=== PATIENT | female | born 1930 | race Caucasian/White ===

== ENCOUNTER → 2016-11-19 | Outpatient (CLI) | payer MEDICARE ==
[~2016-11-19] MED LIST: ACET50TA PO; CALC1CAP31 PO; CINA30TA PO; FISH1CAP14 PO; GLIP-163 PO; HYDR25T PO; LASI20TA PO; LOSA100T36 PO; MAGN400C2 PO; MULTCAP11 PO; NYST10CR EXT; SIMV20TA2 PO; VITA100037 PO; VITA200016 PO
[2016-11-19 13:51] LABS: CALCIUM LEVEL 9.9 MG/DL (8.8-10.2); CREATININE FOR GFR 1.93 MG/DL (0.55-1.02); GLOMERULAR FILTRATION RATE 26.1 (>32); POTASSIUM SERUM 4.1 MEQ/L (3.5-5.1)
--- NOTE | 2016-11-19 17:22 | REP ---
CHEST, TWO VIEWS: REASON: Preop testing. COMPARISON: Multiple, latest 09/19/2011. Note is again made of previous median sternotomy. The cardiomediastinal silhouette is unchanged. The heart is not enlarged. In the right lung lower lobe there is a new 5 mm sized nodule. No acute patch parenchymal opacities or pleural effusions have developed. The pleural angles are sharp. There are chronic changes seen involving the spine status quo. IMPRESSION:1. New right lower lobe nodule as described above for which contrast enhanced CT examination of the chest is recommended. 2. Other chronic changes as described above. Signed by Forrest Ireland DO 11/20/2016 10:20 A
--- NOTE | 2016-11-19 19:08 | ECGEPIP ---
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
== END ==
LOC: M LAB 11:59
PROVIDERS: ATTEND Ophthalmology
DX: Z01.818 Encounter for other preprocedural examination (principal); R91.1 Solitary pulmonary nodule; E11.9 Type 2 diabetes mellitus without complications; I50.9 Heart failure, unspecified

== ENCOUNTER → 2016-11-19 | Outpatient (REF) | payer MEDICARE ==
[2016-11-19 16:23] LABS: ALBUMIN 3.7 GM/DL (3.2-5.2); ALBUMIN/GLOBULIN RATIO 1.03 (1.00-1.93); BILIRUBIN,TOTAL 0.4 MG/DL (0.2-1.0); CALCIUM LEVEL 9.6 MG/DL (8.8-10.2); CREATININE FOR GFR 1.78 MG/DL (0.55-1.02); GLOMERULAR FILTRATION RATE 28.7 (>32); MAGNESIUM LEVEL 1.9 MG/DL (1.8-2.4); POTASSIUM SERUM 4.2 MEQ/L (3.5-5.1); TOTAL PROTEIN 7.3 GM/DL (6.4-8.2)
== END ==
LOC: M SFHCLACO 09:46
PROVIDERS: ATTEND Physician Assistant
DX: E78.2 Mixed hyperlipidemia (principal); E11.9 Type 2 diabetes mellitus without complications; I10 Essential (primary) hypertension; E61.2 Magnesium deficiency

== ENCOUNTER → 2016-12-05 | Day surgery (SDC) | payer MEDICARE ==
[~2016-12-05] VITALS: Ht 144.8 cm; Wt 66.7 kg
[~2016-12-05] MED LIST changes: +ACETYLCHOLINE OPHTH SOLN 1% 2ML (MIOCHOL-E) As Ordered ONE; +BALANCED SALT IRRIGATION SOLUTION 500ML BAG (FOR OR EYE MACHINE) As Ordered ONE; +CEFUROXIME 1MG/0.1ML INTRACAMERAL INJ As Ordered ONE; +D5W/0.2% SODIUM CHLORIDE 250 ML IV ONE; +HEALON DUET (HEALON 10MG/ML 0.55ML & HEALON ENDOCOAT 30MG/ML 0.85ML) As Ordered ONE; +LIDOCAINE 0.75%/EPINEPHRINE 0.025% IN BSS 1ML SYR INTRACAMERAL (OR ONLY) As Ordered ONE; +LIDOCAINE 4% INJ 5 ML AMP As Ordered ONE; +MIDAZOLAM INJ 2 MG/2 ML VIAL (J2250) As Ordered ONE; +OFLOXACIN 0.3 % (OCUFLOX) OPTH SOL 5ML OS ONE; +PHENYLEPHRINE 2.5% OPHTH SOL 2ML OS ONE; +POVIDONE-IODINE 5% OPHTH PREP SOL 30ML As Ordered ONE; +PROPARACAINE 0.5% OPHTH SOL 15ML OS ONE; +TOBRADEX OPHTH OINT 3.5 GM As Ordered ONE; +TROPICAMIDE 1% OPHTH SOLN 2ML OS ONE; +fentaNYL 100 MCG/2 ML INJECTION (J3010) As Ordered ONE
[2016-12-05 13:16] VITALS: BP 195/86
--- NOTE | 2016-12-06 10:48 | RO ---
DATE OF PROCEDURE: 12/05/2016 PREOPERATIVE DIAGNOSIS: Visually significant nuclear sclerotic cataract left eye. POSTOPERATIVE DIAGNOSIS: Visually significant nuclear sclerotic cataract left eye. PROCEDURE: Cataract extraction with use of phacoemulsification and placement of intraocular lens AU00T0 22.0 diopter, left eye. SURGEON: Syd Lynn DO CLINICAL RESEARCH MANAGER: ANESTHESIA: Local with monitored anesthesia care (MAC). COMPLICATIONS: None. POSTOPERATIVE CONDITION: Stable. INDICATION FOR SURGERY: Blurred vision left eye affecting patient's activities of daily living. DESCRIPTION OF PROCEDURE: The patient was seen in the preoperative area and properly identified. The correct operative eye was identified and marked. Attention was turned to that eye. The patient received topical antibiotics in the preoperative area. The patient then received topical dilating drops consisting of tropicamide and phenylephrine. The patient was then transferred to the operating room. The correct side was reidentified. The patient received topical anesthetics and antibiotics on the surface of the eye. The eye was prepped and draped in a sterile fashion. The upper and lower eyelids were isolated with Tegaderm tape, and the lids were held open with an adjustable speculum. Using a sideport blade, a paracentesis incision was made. Intraocular preservative-free lidocaine was then injected into the anterior chamber. Viscoelastic was then injected into the anterior chamber through the paracentesis. Using a 2.65 mm sharp-tipped keratome, the anterior chamber was entered via a temporal clear corneal incision. A continuous curvilinear capsulorrhexis was created with the aid of a 26-gauge cystotome and Utrata forceps. Hydrodissection was performed with balanced salt solution (BSS) on a blunt cannula until the nucleus was freely mobile. The crystalline lens was phacoemulsified and aspirated. Additional cohesive viscoelastic was placed into the capsular bag to deepen it. AU00T0 22.0 lens was placed into the capsular bag and confirmed by visualizing the continuous curvilinear capsulorrhexis. Additional irrigation and aspiration was used to remove cortical material and remaining viscoelastic. The clear corneal incision was hydrated with BSS on a blunt cannula. The lens was well positioned. The incisions were then tested for leaks and found to be negative. The eye was then palpated for appropriate pressure and adjusted accordingly with BSS. The eyelid speculum was then carefully removed. Tobradex ointment was placed in the eye. An eye patch and shield were then secured over the eye. The patient tolerated the procedure well and was discharged to the recovery unit in a stable condition. REED
== END | disposition home or self-care (01) ==
LOC: M SDC 09:46
PROVIDERS: ATTEND Ophthalmology
DX: H25.12 Age-related nuclear cataract, left eye (principal); I11.0 Hypertensive heart disease with heart failure; E78.00 Pure hypercholesterolemia, unspecified; I25.10 Atherosclerotic heart disease of native coronary artery without angina pectoris; I25.2 Old myocardial infarction; E11.9 Type 2 diabetes mellitus without complications; R29.898 Other symptoms and signs involving the musculoskeletal system; M17.0 Bilateral primary osteoarthritis of knee; M19.019 Primary osteoarthritis, unspecified shoulder; N28.9 Disorder of kidney and ureter, unspecified; Z78.0 Asymptomatic menopausal state; Z88.5 Allergy status to narcotic agent; Z79.899 Other long term (current) drug therapy
CPT/HCPCS: 66984; J2250; J3010; V2632

== ENCOUNTER → 2017-03-07 | Outpatient (REF) | payer MEDICARE ==
[~2017-03-07] MED LIST changes: +ACET650T3 PO; -ACETYLCHOLINE OPHTH SOLN 1% 2ML (MIOCHOL-E) As Ordered ONE; +AMLO5TAB2 PO; +ASPI81TA21 PO; -BALANCED SALT IRRIGATION SOLUTION 500ML BAG (FOR OR EYE MACHINE) As Ordered ONE; -CEFUROXIME 1MG/0.1ML INTRACAMERAL INJ As Ordered ONE; -D5W/0.2% SODIUM CHLORIDE 250 ML IV ONE; -HEALON DUET (HEALON 10MG/ML 0.55ML & HEALON ENDOCOAT 30MG/ML 0.85ML) As Ordered ONE; +HYDR-3363 PO; -HYDR25T PO; +HYDR25TA PO; -LIDOCAINE 0.75%/EPINEPHRINE 0.025% IN BSS 1ML SYR INTRACAMERAL (OR ONLY) As Ordered ONE; -LIDOCAINE 4% INJ 5 ML AMP As Ordered ONE; -MIDAZOLAM INJ 2 MG/2 ML VIAL (J2250) As Ordered ONE; -OFLOXACIN 0.3 % (OCUFLOX) OPTH SOL 5ML OS ONE; -PHENYLEPHRINE 2.5% OPHTH SOL 2ML OS ONE; -POVIDONE-IODINE 5% OPHTH PREP SOL 30ML As Ordered ONE; -PROPARACAINE 0.5% OPHTH SOL 15ML OS ONE; -TOBRADEX OPHTH OINT 3.5 GM As Ordered ONE; +TORS10TA3 PO; +TORS20TA2 PO; -TROPICAMIDE 1% OPHTH SOLN 2ML OS ONE; -VITA100037 PO; +VITA100067 PO; -fentaNYL 100 MCG/2 ML INJECTION (J3010) As Ordered ONE
[2017-03-13 14:15] LABS: RENIN LEVEL 1.512 ng/mL/hr (0.167-5.380)
== END ==
LOC: M LAB REF 17:45
PROVIDERS: ATTEND Internal Medicine Nephrology
DX: I15.0 Renovascular hypertension (principal)

== ENCOUNTER → 2017-03-18 | Outpatient (CLI) | payer MEDICARE ==
--- NOTE | 2017-03-18 16:32 | REP ---
RENAL ULTRASOUND WITH RENAL ARTERY DOPPLER ULTRASOUND: 03/18/2017: Clinical history: Renovascular hypertension. Comparison: 11/15/2014. Renal ultrasound: The right kidney is 10.8 x 4.8 x 5.5 cm, the left is 11.6 x 6.0 x 6.9 cm. Bilateral cortical thickness is slightly thinned. There are calcified vessels at the hilum bilaterally. The two largest cysts are in the lower pole on the right 2.4 x 2.1 cm and 1.8 x 1.8 cm lateral and medial on that lower pole left kidney also shows multiple cysts with a septated gross pelvic cyst 4.4 x 4.2 x 4 cm and medially at the interpolar region 2.5 x 1.9 cm. No perinephric fluid or solid mass in either side. The bladder is grossly unremarkable although not well filled and without bladder wall mass or thickening. Impression: 1. Cortical thinning representing some mild cortical atrophy with some calcified vessels in the hilar regions bilaterally. 2. Septated cyst, parapelvic region interpolar 4.4 x 4.2 cm with a medial simple cyst 2.5 x 1.9 cm at the interpolar region on the left and two lower pole cyst on the right 2.4 and 1.8 cm largest. No hydronephrosis, stone or solid mass. RENAL ARTERY DOPPLER ULTRASOUND: The right kidney has a length of 10.8 cm.Peak renal artery velocity 61.5 cm/SPeak aortic velocity at the renal artery level 81.7 cm/SRenal aortic ratio 0.8Resistive index upper 0.75, mid 0.71, lower 0.75Acceleration time upper 0.048, mid 0.060, lower 0.052 Sec. The left kidney is 11.6 cm in length.Peak renal artery velocity 105 cm/SPeak aortic velocity at the renal artery level 81.7 cm/SRenal aortic ratio 1.3Resistive index of upper 0.67, mid 0.70, lower 0.75Acceleration time upper 0.052, mid 0.052, lower pole 0.068. The Doppler wave forms do show slight rounding of the aortic peaks. There are normal renal aortic ratios. Peak velocities are all in the normal range. Impression:1. There is no compelling primary or secondary evidence of renal artery stenosis by Doppler and artery tracings in the kidneys. Signed by Breezy Goodson MD 03/21/2017 05:15 P
== END ==
LOC: M RAD 08:41
PROVIDERS: ATTEND Internal Medicine Nephrology
DX: I15.0 Renovascular hypertension (principal)

== ENCOUNTER 2017-03-28 15:36 | Inpatient (IN) | payer MEDICARE ==
[~2017-03-28] VITALS: Ht 147.3 cm; Wt 64.4 kg
[~2017-03-28 15:36] MED LIST changes: -ACET650T3 PO; -AMLO5TAB2 PO; -ASPI81TA21 PO; -HYDR25TA PO; -TORS10TA3 PO; -TORS20TA2 PO
[2017-03-28] MEDS ORDERED: ACET650T3 PO (15:52)
[2017-03-28] MEDS ORDERED: TORS10TA3 PO (15:52)
[2017-03-28] MEDS ORDERED: LABETALOL HCL 100 MG/20 ML VIAL IV STA (18:00)
[2017-03-28] MEDS ORDERED: DEXTROSE 50% 50 ML SYRINGE IV PRN (18:30)
[2017-03-28] MEDS ORDERED: GLUCAGON FOR INJ 1 MG VIAL (J1610) SC PRN (18:30)
[2017-03-28] MEDS ORDERED: GLUCOSE 4 GM CHEW TABLET PO PRN (18:30)
[2017-03-28 19:20] LABS: BASO # 0.1 K/mm3 (0.0-0.2); EOS # 0.5 K/mm3 (0.0-0.50); EOS % 6.1 % (0.0-3.0); LARGE UNSTAINED CELL # 0.2 K/mm3 (0.0-0.4); LARGE UNSTAINED CELL % 1.9 % (0.0-4.0); LYMPH # 2.7 K/mm3 (1.5-4.5); LYMPH % 32.6 % (24.0-44.0); MEAN CORPUSCULAR HEMOGLOBIN 30.1 pg (27.0-33.0); MEAN CORPUSCULAR HGB CONC 32.6 g/dl (32.0-36.5); MEAN CORPUSCULAR VOLUME 92.4 fl (80.0-96.0); MONO # 0.4 K/mm3 (0.0-0.8); MONO % 5.3 % (0.0-5.0); NEUTROPHILS # 4.1 K/mm3 (1.8-7.7); PLATELET COUNT, AUTOMATED 203 k/mm3 (150-450); RED CELL DISTRIBUTION WIDTH 13.1 % (11.5-14.5); WHITE BLOOD COUNT 7.8 K/mm3 (4.0-10.0)
[2017-03-28] MEDS ORDERED: BISOPROLOL FUMARATE 5 MG TAB PO SCH (19:30)
[2017-03-28] MEDS ORDERED: TORS20TA2 PO (19:31)
[2017-03-28] MEDS ORDERED: ASPI81TA21 PO (19:33)
[2017-03-28] MEDS ORDERED: HYDR25TA PO (19:33)
[2017-03-28] MEDS: SIMVASTATIN 20 MG TAB PO SCH (19:43)
[2017-03-28 19:47] LABS: CREATININE FOR GFR 1.98 MG/DL (0.55-1.02); GLOMERULAR FILTRATION RATE 25.4 (>32); PHOSPHORUS LEVEL 4.4 MG/DL (2.5-4.9); POTASSIUM SERUM 3.7 MEQ/L (3.5-5.1)
[2017-03-28] MEDS ORDERED: amLODIPine 5 MG TAB PO ONE (20:00)
[2017-03-28] MEDS: HumaLOG INSULIN (NovoLOG) PER UNIT SC SCH (20:20)
--- NOTE | 2017-03-28 21:51 | CR ---
DATE OF CONSULTATION: REQUESTING PHYSICIAN: Dr. Jayant Michelle. REASON FOR CONSULTATION: Management of accelerated hypertension in this patient with history of chronic kidney disease stage IV. CHIEF COMPLAINT: The patient was sent from nephrology clinic today because she called the nephrology clinic today morning stating that her blood pressure on the home machine was running in the 200s. HISTORY OF PRESENT ILLNESS: Andrea Holden is an 86-year-old female with past medical history of chronic kidney disease stage III to early stage IV with baseline creatinine of around 1.8. She has a history of hypertension, congestive heart failure, coronary artery disease status post coronary artery bypass graft (CABG). She was seen in the nephrology clinic about three weeks ago, and at that time, she was also complaining of high blood pressures at home. However, when she was seen in the clinic, her blood pressure was 148 systolic, so no change in the medication was done except that she was restarted on hydralazine 25 mg by mouth twice a day. She was already on losartan 100 mg by mouth daily. Further workup including a renal ultrasound and Doppler of the renal arteries was negative. Large aldosterone concentration and plasmin inactivity was also found to be normal. However, after visiting the clinic, patient kept on taking her blood pressure and her home machine was telling that it was running in 200s. The patient denies any headache , blurry vision, dizziness, lightheadedness, chest pain, shortness of breath, any nausea, vomiting or any symptoms of high blood pressure. When patient was examined in the emergency room, initially the manual blood pressure was low; however, on the automatic blood pressure machine, her blood pressure was found to be 200 systolic, so patient was admitted to the hospital for further management of hypertensive urgency and nephrology service was called for further management of hypertension in this patient with a history of chronic kidney disease. When I saw the patient, she was totally asymptomatic in the emergency room today. PAST MEDICAL HISTORY: 1. The patient has a past medical history of chronic kidney disease stage III to early stage IV, last baseline creatinine of around 1.4 three weeks ago; otherwise, her baseline runs around 1.8. 2. Hypertension. 3. Congestive heart failure. 4. Diabetes mellitus type 2. 5. Hyperlipidemia. PAST SURGICAL HISTORY: The patient has a past surgical history of coronary artery bypass grafting, history of hysterectomy, history of carpal tunnel surgery, history of cataract surgery. ALLERGIES: The patient is allergic to: 1. CODEINE. 2. HYDROCODONE. 3. OXYCODONE. FAMILY HISTORY: No significant family history of end-stage renal disease requiring hemodialysis. SOCIAL HISTORY: The patient lives alone. She is . She denies any illicit drug abuse, alcohol abuse, or smoking. REVIEW OF SYSTEMS: CONSTITUTIONAL: The patient denies any fever, chills, rigors or weakness. EYES: She denies any blurry vision or double vision. EARS, NOSE, THROAT (ENT): She denies any dysphagia, odynophagia or ear discharge. CARDIOVASCULAR: She denies any chest pain, palpitations or edema. RESPIRATORY: She denies any cough, wheezing, or shortness of breath. GASTROINTESTINAL (GI): She denies any nausea, vomiting, diarrhea. GENITOURINARY (): She denies any dysuria or hematuria. MUSCULOSKELETAL: She denies any muscle aches and pains. CENTRAL NERVOUS SYSTEM (TEAM LEAD): She denies any stroke, seizures or weakness. SKIN: She denies any rashes or ulcers. ENDOCRINE: She reports history of diabetes. There is no history of thyroid disorder. HEMATOLOGIC/ONCOLOGIC: She denies any easy bruising or bleeding tendency. All other review of systems is negative. PHYSICAL EXAMINATION: GENERAL: The patient is awake, alert, and oriented times three, sitting in the bed in no apparent distress. HEAD/NECK: Extraocular muscles. Pupils equal, round, and reactive to light. Mucous membranes are moist. Neck is supple. There is no jugular venous distention (JVD). VITAL SIGNS: When I saw the patient in the emergency room, her temperature was 97.9 degrees Fahrenheit, blood pressure was 217/105, pulse 63, respiratory rate of 18, saturating 97% on room air. CARDIOVASCULAR: S1, S2, regular rate. No murmur, rub, or gallop. RESPIRATORY: Chest is clear to auscultation bilaterally. Bilateral equal air entry. No rales or rhonchi. ABDOMEN: Soft. Positive bowel sounds. Nontender. No ascites. No organomegaly. MUSCULOSKELETAL: No clubbing or cyanosis. Pulses are 2+. Normal range of movement. TEAM LEAD: No focal neurological deficit. Power is 5/5 in all extremities. PSYCHIATRIC: Normal mood and affect. SKIN: No rashes or ulcers. LYMPHATIC: No significant cervical, axillary or unguinal lymphadenopathy. LABORATORY DATA: CBC showed a WBC 7.8, hemoglobin 13.8, platelets of 203. Urinalysis showed 1+ protein, negative leukocyte esterase, negative blood. BMP shows sodium 144, potassium 3.7, chloride 105, bicarbonate 28, BUN 43, creatinine 1.8, GFR 25.4, phosphorus 4.4. MICROBIOLOGY: No cultures are available. IMAGING: A renal ultrasound done on 03/18/2017, as an outpatient showed cortical thinning with some mild cortical atrophy bilaterally, and there were cysts on both sides of the kidney and there was no evidence of renal artery stenosis on the Dopplers bilaterally. CURRENT INPATIENT MEDICATIONS: The patient's inpatient medications include amlodipine 5 mg by mouth times one dose, bisoprolol 5 mg by mouth daily that was started today. She was started on insulin sliding scale. She was given labetalol 10 mg intravenous (IV) times one dose. She has been started on losartan 100 mg daily, simvastatin 20 mg at bedtime, torsemide 20 mg in the morning The patient's home medications include: - hydralazine 25 mg one tablet by mouth twice a day - Sensipar 30 mg by mouth three times a week - vitamin D 2000 units every other day - torsemide 20 mg daily - glipizide XL 2.5 mg in the morning - magnesium oxide 400 mg daily - calcitriol 0.25 mcg five days a week - hydroxyzine as needed - losartan 100 mg by mouth daily - simvastatin 20 mg by mouth daily - aspirin 81 mg daily - multivitamin daily - Tylenol 650 mg as needed - fish oil 1 gram by mouth daily ASSESSMENT: An 86-year-old female with past medical history of diabetes mellitus type 2, hypertension, congestive heart failure, hyperlipidemia, admitted this time because of hypertensive urgency, and she has a history of chronic kidney disease stage IV. PLAN: 1. Hypertensive urgency: The patient only takes losartan 100 mg by mouth daily and hydralazine 25 mg by mouth twice a day. Her blood pressure on admission was more than 200 systolic; however, after administration of amlodipine 5 mg and labetalol 10 mg IV, her repeat blood pressure is 177/74, for 25% reduction of blood pressure today. Okay to continue bisoprolol 5 mg daily, amlodipine 5 mg daily, and losartan 100 mg by mouth daily. Continue labetalol 10 mg IV as needed for systolic blood pressure more than 170. 2. Chronic kidney disease stage IV: The patient's baseline creatinine is around 1.8. Her creatinine on admission is 1.9 which is close to her baseline. There is no metabolic or electrolyte abnormality at this time. Okay to continue losartan for now; however, if I see any worsening of the renal function, her losartan will be stopped. She has been on losartan for many years and her glomerular filtration rate (GFR) has been stable in high 20s for the last 2-3 years as I can see the labs. 3. History of coronary artery disease, status post coronary artery bypass graft (CABG): Continue current dose of aspirin 81 mg by mouth daily, and continue simvastatin 20 mg by mouth daily. 4. Secondary hyperparathyroidism: The patient was on Sensipar and calcitriol both at home. I am going to check the parathyroid hormone (PTH) level and depending upon the PTH, her calcitriol or Sensipar will be restarted. 5. Diabetes mellitus type 2: The patient's blood glucose on admission was 87. Her diabetes is very well controlled with glipizide 2.5 mg by mouth daily. Check A1c level and continue home dose of glipizide 2.5 mg daily. 6. History of congestive heart failure: The patient is currently on torsemide 20 mg by mouth daily. Volume status is well optimized. Continue current dose of torsemide. The patient has been started on Bystolic 5 mg by mouth daily. Okay to continue cardioselective beta blockers at this time. Thank you for involving us in the care of this patient. We shall be happy to follow the patient along with you tomorrow morning. Plan of care was discussed with the emergency room (ER) physician today in the evening. REED
--- NOTE | 2017-03-28 21:54 | HPE ---
DATE OF ADMISSION: 03/28/2017 PRIMARY CARE PROVIDER: JOCELYNE Canada, [facility].. TIP STITCHER: Dr. Hannon CHIEF COMPLAINT: Accelerated hypertension. HISTORY: Andrea Maza is an 86-year-old with stage IV chronic kidney disease. Her blood pressure has been elevated, over 200-210 systolic at home. Today she called Dr. Hannon's office, who directed her to the emergency room. Blood pressure has been somewhat erratic here, as low as 122/70, as high as 217/105. She is being admitted for control of this. She has a history of stage IV chronic kidney disease. Is followed by Dr. Hannon's office. Has coronary artery disease, status post coronary artery bypass graft (CABG) times four. Nuclear stress test in 2013. It showed no reversibility, 82% ejection fraction. History of type 2 diabetes, hyperlipidemia, hypertension, renal cysts, and knee pain. SOCIAL HISTORY: Nonsmoker. Quit back when was in her 40s. SURGICAL HISTORY: 1. sections times four. 2. Coronary bypass 2010. FAMILY HISTORY: Father had emphysema. Mother had congestive heart failure (CHF). MEDICATIONS: - losartan 100 mg daily - torsemide 10 mg twice a day - aspirin 81 mg daily - magnesium oxide 400 mg daily - simvastatin 20 mg at bedtime - fish oil - glipizide 2.5 mg daily - calcitriol 0.25 mcg daily - Sensipar 30 mg twice weekly - vitamin D 2000 units daily - nystatin cream as needed - Tylenol as needed - multivitamin ALLERGIES: CODEINE caused hallucinations. IMMUNIZATIONS: She received her Prevnar April 2016. I am not sure if she has gotten her Pneumo 23. She gets yearly flu shots. REVIEW OF SYSTEMS: No orthopnea, paroxysmal nocturnal dyspnea (PND), chest pain. No increased salt intake. No syncope. PHYSICAL EXAMINATION: 217/105, pulse 96, respiratory rate 16, 95% oxygen saturation. GENERAL APPEARANCE: Alert, conversant. No distress. Pupils equal, reactive to light. Tympanic membranes and oropharynx benign. Fundi look unremarkable. No jugular venous distention (JVD). NECK: Supple. LUNGS: Clear. HEART: Regular rate and rhythm without murmur. ABDOMEN: Soft, nontender. No masses. EXTREMITIES: No clubbing, cyanosis, or edema. She has no clonus. NEUROLOGIC: Unremarkable. Normal strength, reflexes, and sensation. LABORATORY DATA: Apparently she did not have any labs drawn today. Review in [facility] showed she had a renal ultrasound done 03/21/2017. No renal artery stenosis was seen. Medical renal disease noted as well as some renal cysts. IMPRESSION: 1. Hypertensive urgency. She is neurology intact. No sign of any end-organ change, although there have been on labs drawn, so we are not sure what is going on with renal function. Lab work would be helpful in this patient. I think we can still proceed with admission based on her blood pressure. She will be admitted to a progressive care unit (PCU) bed. Continue her antihypertensives, losartan 100 mg daily, torsemide 10 mg daily. Add beta stu, bisoprolol 5 mg daily. Add amlodipine 5 mg daily. Consult nephrology. 2. Stage IV chronic kidney disease. Nephrology consulted. 3. Diabetes. Hold her glipizide. Blood sugars with sliding scale coverage until her oral intake is assured. 4. Hyperlipidemia. Continue simvastatin 20 mg daily.
[2017-03-29] VITALS (7 sets, daily range): BP systolic 113–158; BP diastolic 56–70; PULSE 58
[2017-03-29] MEDS: LABETALOL HCL 100 MG/20 ML VIAL IV SCH ×4 (05:24→17:54)
[2017-03-29 06:21] LABS: ANION GAP 13 MEQ/L (8-16); BLOOD UREA NITROGEN 42 MG/DL (7-18); CARBON DIOXIDE LEVEL 25 MEQ/L (21-32); CHLORIDE LEVEL 107 MEQ/L (98-107); CREATININE FOR GFR 1.89 MG/DL (0.55-1.02); GLOMERULAR FILTRATION RATE 26.8 (>32); GLUCOSE, FASTING 106 MG/DL (83-110); MAGNESIUM LEVEL 1.8 MG/DL (1.8-2.4); PHOSPHORUS LEVEL 4.8 MG/DL (2.5-4.9); SODIUM LEVEL 145 MEQ/L (136-145)
[2017-03-29 06:22] LABS: MEAN CORPUSCULAR HEMOGLOBIN 30.3 pg (27.0-33.0); MEAN CORPUSCULAR HGB CONC 32.8 g/dl (32.0-36.5); MEAN CORPUSCULAR VOLUME 92.6 fl (80.0-96.0); RED CELL DISTRIBUTION WIDTH 13.2 % (11.5-14.5); WHITE BLOOD COUNT 7.9 K/mm3 (4.0-10.0)
[2017-03-29] MEDS: TORSEMIDE 20 MG TAB PO SCH (08:47)
[2017-03-29] MEDS: HumaLOG INSULIN (NovoLOG) PER UNIT SC SCH ×5 (08:48→21:00)
[2017-03-29] MEDS: LOSARTAN 50 MG TAB PO SCH (08:48)
--- NOTE | 2017-03-29 12:10 | ECGEPIP ---
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
[2017-03-29] MEDS: ASPIRIN 81 MG ENTERIC TAB PO SCH (12:14)
--- NOTE | 2017-03-29 17:06 | IPN ---
DATE: 03/29/2017 SUBJECTIVE: Patient was seen and examined at the bedside today morning. Last 24-hour events were noted. Vital signs over the last 24 hours were noted. Patient's blood pressures are significantly better today. She denies any active complaints at this time. She is hemodynamically much more stable today as compared with yesterday. REVIEW OF SYSTEMS: Patient denies any fevers, chills, rigors, headache, nausea, vomiting, chest pain, shortness of breath, pain in abdomen, constipation, or diarrhea. Rest of review of systems is negative. OBJECTIVE: Vital signs: Temperature is 98.5 degrees Fahrenheit, blood pressure is 140/60, pulse is 48, respiratory rate of 18, saturating 96% on room air. Intake and output: Urine output recorded overnight is 800 mL. Weight in the bed scale is 65.3 kg. PHYSICAL EXAMINATION: GENERAL: Patient is awake, alert, oriented times three, lying in bed. No apparent distress. HEAD AND NECK: Extraocular muscles intact. Pupils equally round and reactive to light. Mucous membranes are moist. Neck is supple. There is no jugular venous distention (JVD). CARDIOVASCULAR: S1, S2, regular rate. No murmur, rub, or gallop. RESPIRATORY: Chest is clear to auscultation bilaterally. Bilateral equal air entry. No rales or rhonchi. ABDOMEN: Abdomen is soft. Positive bowel sounds. Nontender. No ascites. No organomegaly. MUSCULOSKELETAL: No clubbing or cyanosis. Pulses are 2+. Normal range of movement. CENTRAL NERVOUS SYSTEM: No focal neurological deficit. Power is 5/5 in all extremities. PSYCHIATRIC: Normal mood and affect. SKIN: No rashes or ulcers. LABORATORY REVIEW: CBC showed a WBC 7.9, hemoglobin is 12, platelets are 192. BMP showed sodium 145, potassium is 4, chloride 107, bicarbonate 25, BUN is 42, creatinine is 1.8, which is close to her baseline. Glucose was 126, A1c was 6 today morning. Ionized calcium is 5, phosphorus is 4.8. PTH level is still pending. CURRENT INPATIENT MEDICATIONS: Patient's medications were all reviewed by me. She has been started on amlodipine 5 mg daily. Bisoprolol dose was decreased to 2.5 mg by mouth daily because of bradycardia. She continues to be on losartan 100 mg by mouth daily and torsemide 20 mg by mouth every morning. Patient has not required any labetalol dose since last night. ASSESSMENT: An 86-year-old female with past medical history of diabetes mellitus, type 2, hypertension, congestive heart failure, hyperlipidemia, admitted at this time because of hypertensive urgency. PLAN: 1. Hypertensive urgency. Patient's blood pressure is significantly better. She was given a dose of amlodipine and intravenous (IV) hydralazine yesterday. Continue current dose of losartan 100 mg daily. Continue current dose of diuretic. Patient had bradycardia this morning. Her bisoprolol dose has been decreased to 2.5 mg daily. Continue amlodipine 5 mg daily, which was started yesterday. 2. Chronic kidney disease, stage IV. Patient's baseline creatinine is around 1.8, and her renal function is close to her baseline. It is okay to continue the angiotensin receptor blockers at this time. 3. History of coronary artery disease, status post coronary artery bypass graft (CABG). Blood pressure is better controlled today. I have restarted patient's home dose of aspirin 81 mg daily. Continue simvastatin 20 mg by mouth daily. 3. Secondary hyperparathyroidism. Patient was on calcitriol and Sensipar both as outpatient. Parathyroid hormone level is pending. Once the parathyroid hormone (PTH) level comes back, I will restart the patient on one of these medications. 4. Diabetes mellitus, type 2. Patient's A1c is 6, which is very tightly controlled for her age. She was on glipizide 2.5 mg daily. Glipizide is on hold. Blood glucose levels are within the optimal range. No need to restart the glipizide at this time. 5. History of congestive heart failure. Patient is currently on torsemide 20 mg by mouth daily. Continue current dose of torsemide. Volume status is well optimized. Patient has been started on Bystolic; however, because of bradycardia, dose has been decreased to 2.5 mg by mouth daily. 6. Workup for secondary hypertension. Patient already got the Doppler of the renal arteries done as outpatient, which was negative. Plasma and aldosterone concentration and plasma renin activity were within the normal range. I have ordered the metanephrines and vanillylmandelic acid (VMA) in the urine. The results are pending. DISCHARGE PLANNING: If patient's blood pressure remains stable by tomorrow morning, then she can be discharged on oral medications. Rest of the workup will be done as outpatient. Plan of care was discussed with the hospitalist, Dr. Jayant Michelle.
--- NOTE | 2017-03-29 17:23 | ECGEPIP ---
Stationary ECG Study 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
--- NOTE | 2017-03-29 18:57 | IPN ---
DATE: 03/29/2017 Ms. Maza is doing well today. She has no complaints of pain, no chest pain, is not short of breath, and has been checking her blood pressure at home frequently, and has said it has been elevated. Temperature 98.5, pulse 48, respiratory rate 18, blood pressure 140/60, 96% on room air. Telemetry has shown her to be in sinus bradycardia at times. She did get beta blockade last night. Intake and output notable for a negative fluid balance of -470, three bowel movements noted thus far today. She is awake, appropriately interactive, pleasantly conversant, in no acute distress. Breathing is symmetrical and rested, I:E ratio is 1:3, no accessory muscle use, speaking in complete sentences. Heart is in a regular rate and rhythm, although is bradycardic as previously mentioned. Radial pulses 2+. Capillary refill less than 2 seconds. Abdomen soft, doughy, nontender to deep palpation. No significant lower extremity edema. White cell count 7.9, hemoglobin 12, and platelets of 182. Sodium 145, potassium 4, chloride 107, carbon dioxide 25, BUN 42, creatinine 1.89. CK and troponins have been negative times three. My assessment is as follows: This is an 86-year-old female with hypertensive urgency. Plan is as follows: 1. Hypertension. The patient's blood pressure is better controlled. It is unclear whether or not her home device for measuring her blood pressure is entirely accurate, although it is clear that she has had elevated blood pressure that has been somewhat variable during her stay. She has been bradycardic. I have discussed the case with the covering residential supervisor. Her Zebeta dose has been decreased based on that visit. 2. The patient has chronic kidney disease stage IV. She is likely near her baseline. 3. The patient has coronary artery disease status post coronary artery bypass graft (CABG). 4. The patient has diabetes. Blood glucoses have been chronically well controlled. 5. The patient has history of congestive heart failure, on torsemide. 6. The patient can likely be discharged in the next 1-2 days to continue any further workup as necessary as an outpatient.
[2017-03-29] MEDS ORDERED: BISOPROLOL FUMARATE 5 MG TAB PO SCH (19:30)
[2017-03-29] MEDS: amLODIPine 5 MG TAB PO SCH (19:50)
[2017-03-29] MEDS: SIMVASTATIN 20 MG TAB PO SCH (20:29)
[2017-03-29] MEDS: hydrOXYzine 25 MG TAB PO SCH (21:00)
[2017-03-30 03:37] VITALS: BP 132/72
[2017-03-30 05:45] VITALS: BP 128/56
[2017-03-30] MEDS: LABETALOL HCL 100 MG/20 ML VIAL IV SCH ×2 (05:54)
[2017-03-30 06:13] LABS: MEAN CORPUSCULAR HGB CONC 34.1 g/dl (32.0-36.5); MEAN CORPUSCULAR VOLUME 90.7 fl (80.0-96.0); RED CELL DISTRIBUTION WIDTH 12.9 % (11.5-14.5); WHITE BLOOD COUNT 8.3 K/mm3 (4.0-10.0)
[2017-03-30 06:28] LABS: CALCIUM LEVEL 9.9 MG/DL (8.8-10.2); CREATININE FOR GFR 2.05 MG/DL (0.55-1.02); GLOMERULAR FILTRATION RATE 24.4 (>32); POTASSIUM SERUM 3.7 MEQ/L (3.5-5.1)
[2017-03-30] MEDS: HumaLOG INSULIN (NovoLOG) PER UNIT SC SCH (07:30)
[2017-03-30 08:00] VITALS: BP 134/68
[2017-03-30] MEDS ORDERED: BISOPROLOL FUMARATE 5 MG TAB PO SCH (09:00)
[2017-03-30] MEDS: TORSEMIDE 20 MG TAB PO SCH (10:11)
[2017-03-30] MEDS: ASPIRIN 81 MG ENTERIC TAB PO SCH (10:11)
[2017-03-30] MEDS: LOSARTAN 50 MG TAB PO SCH (10:11)
[2017-03-30 11:36] VITALS: BP 138/62
[2017-03-30 16:00] VITALS: BP 152/64
--- NOTE | 2017-03-30 16:35 | IPN ---
DATE: 03/30/2017 SUBJECTIVE: Patient was seen and examined at the bedside today morning. Patient denies any active complaint. The last 24 hour events were noted. Patient was found to be bradycardic, with a pulse rate down to 40s. She was given a small dose of bisoprolol 2.5 mg last night. I see that bisoprolol dose has been stopped by primary team today. Otherwise, patient is hemodynamically stable. Her blood pressures are within the normal range. REVIEW OF SYSTEMS: Patient denies any fevers, chills, rigors, headache, nausea, vomiting, chest pain, palpitations, shortness of breath, dizziness, abdominal pain, constipation or diarrhea. The rest of review of systems is negative. OBJECTIVE: VITAL SIGNS: Temperature 98.3 degrees Fahrenheit, blood pressure 134/68, pulse 60, respiratory rate 18, saturating 94% on room air. INTAKE AND OUTPUT: Urine output recorded is 1.1 liter yesterday, 550 mL so far today since overnight. Weight in the bed scale is 65 kg. PHYSICAL EXAMINATION: GENERAL: Patient is awake, alert, oriented times three. Laying in bed in no apparent distress. HEAD AND NECK EXAM: Extraocular muscles intact. Pupils equally round and reactive to light. Mucous membranes are moist. Neck is supple. There is no jugular venous distention (JVD). CARDIOVASCULAR: S1, S2. Regular rate. No murmurs, rubs or gallops. RESPIRATORY: Clear to auscultation bilaterally. Bilateral equal air entry. No rales or rhonchi. ABDOMEN: Soft. Positive bowel sounds. Nontender. No ascites. No organomegaly. MUSCULOSKELETAL: No clubbing or cyanosis. Pulses are 2+. Normal range of motion. CENTRAL NERVOUS SYSTEM: No focal neurological deficits. Power is 5/5 in all extremities. PSYCHIATRIC: Normal mood and affect. SKIN: No rashes or ulcers. LABORATORY REVIEW: Complete blood count (CBC) showed a WBC 8.3, hemoglobin 12.4, platelets 193. Basic metabolic panel (BMP) showed sodium 146, potassium 3.7, chloride 108, bicarbonate 28, BUN 46, creatinine 2, which is slightly worse than her baseline of 1.8, calcium 9.9. CURRENT INPATIENT MEDICATIONS: Patient's medications were all reviewed by me. Bisoprolol dose has been stopped. She continues to be on amlodipine 5 mg by mouth daily. As needed labetalol has been stopped. Losartan continues to be 100 mg by mouth daily. There is no other change in the medications today as compared with yesterday. ASSESSMENT: An 86-year-old female with past medical history of diabetes mellitus type 2, hypertension, congestive heart failure, hyperlipidemia, admitted this time because of hypertensive emergency. PLAN: 1. Hypertension. Patient's blood pressure is significantly improved. Her home dose of antihypertensive medications are Losartan and hydralazine; however, over here, she is responding very well to Losartan and amlodipine. She was also on bisoprolol, but because of bradycardia, her bisoprolol dose has een stopped. Continue to monitor for now. 2. Chronic kidney disease stage IV. Patient's creatinine is slightly higher than her baseline. Part of it might be because of bradycardia and drop in her blood pressure. Continue to monitor for now. Okay to continue Losartan at this time. 3. History of coronary artery disease. Continue aspirin and statin at this time. 4. History of congestive heart failure. Volume status is optimized. Continue torsemide 20 mg daily. Patient could not tolerate lower dose of bisoprolol because of bradycardia. 5. Diabetes mellitus type 2. Patient's glucose was very tightly controlled with the sulfonylurea. Her A1c is 6. No need of sulfonylurea at this time.
--- NOTE | 2017-03-30 17:27 | ECGEPIP ---
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
[2017-03-30 19:58] VITALS: BP 132/54
[2017-03-30] MEDS: hydrOXYzine 25 MG TAB PO SCH (20:35)
[2017-03-30] MEDS: SIMVASTATIN 20 MG TAB PO SCH (20:35)
[2017-03-30] MEDS: amLODIPine 5 MG TAB PO SCH (20:35)
--- NOTE | 2017-03-30 20:50 | IPN ---
DATE: 03/30/2017 Ms. Maza is feeling quite well today. She has no complaints of pain, chest pain, shortness of breath. Tolerating a diet. She has been up and moving around. Temperature 98, pulse 49, respiratory rate 18, blood pressure 138/62, 94% on room air. Intake and output notable for a negative fluid balance of -70. Four bowel movements. She is awake, appropriately interactive, seen at bedside eating breakfast. Mucous membranes are moist. Bradycardic, is in sinus bradycardia on the monitor. Abdomen is soft, doughy, nontender. LABORATORY DATA: White cell count 8.3, hemoglobin 12.4. BUN 46, creatinine 2.05. ASSESSMENT: This is an 86-year-old with hypertensive urgency. PLAN: 1. Hypertension. The patient's blood pressure is better controlled. Continue with Norvasc. At this point, we have to discontinue the Zebeta based on her heart rate, even on a low dose of Zebeta. She is not particularly bradycardic but rate has been in the low 40s. 2. The patient has chronic kidney disease, stage IV. She is likely near her baseline. 3. The patient has coronary artery disease, status post bypass graft. It would be useful to have her on beta blockade but may try to reintroduce in the future. 4. The patient has diabetes. Blood glucoses have been tightly controlled. She is declining insulin at this point. We have no plans to give her oral antihyperglycemics. We will monitor her clinically. 5. The patient has a history of congestive heart failure, on torsemide. 6. We will monitor the patient overnight and hopefully, we will be able to discharge her tomorrow.
[2017-03-31] VITALS: BP 110/58
[2017-03-31 04:00] VITALS: BP 120/56
[2017-03-31 05:25] LABS: MEAN CORPUSCULAR HEMOGLOBIN 30.5 pg (27.0-33.0); MEAN CORPUSCULAR VOLUME 92.4 fl (80.0-96.0); RED CELL DISTRIBUTION WIDTH 13.1 % (11.5-14.5); WHITE BLOOD COUNT 8.6 K/mm3 (4.0-10.0)
[2017-03-31 05:43] LABS: CALCIUM LEVEL 9.8 MG/DL (8.8-10.2); CREATININE FOR GFR 2.28 MG/DL (0.55-1.02); GLOMERULAR FILTRATION RATE 21.6 (>32); POTASSIUM SERUM 3.8 MEQ/L (3.5-5.1)
[2017-03-31 08:00] VITALS: BP 163/71
[2017-03-31 08:10] VITALS: BP 120/56
[2017-03-31] MEDS: LOSARTAN 50 MG TAB PO SCH (08:10)
[2017-03-31] MEDS: ASPIRIN 81 MG ENTERIC TAB PO SCH (08:10)
[2017-03-31] MEDS: TORSEMIDE 20 MG TAB PO SCH (08:11)
[2017-03-31] MEDS ORDERED: AMLO5TAB2 PO (10:04)
--- NOTE | 2017-03-31 15:33 | DSES ---
DATE OF ADMISSION: 03/28/2017 DATE OF DISCHARGE: 03/31/2017 Specialists involved in her care include Marivel Rios MD. No complications during her stay. No procedures performed during her stay. Discharge diagnoses: 1. Hypertensive urgency. 2. Chronic kidney disease stage III-IV. 3. Congestive heart failure. 4. Type 2 diabetes. 5. Hyperlipidemia. 6. Coronary artery disease. The following is a summary of her hospitalization: This is an 86-year-old who presented with elevated blood pressure at home and was told to come to the emergency department by her investigator claims. She was admitted to the hospitalist service, was treated with antihypertensives and developed bradycardia with the use of beta blockade. Beta blockade was withheld and she was monitored clinically. Her heart rate was noted to go sinus into the 40s while she was sleeping, but raised appropriately while she was awake and she was asymptomatic. On the day of discharge, she is feeling well, she has no complaints of pain, chest pain, shortness of breath. Temperature is 97.1, pulse in 60s to 70s while she is awake, respiratory rate 19, blood pressure 163/71, 94% on room air. Intake and output notable for a negative fluid status of -600. No bowel movements noted. She is awake, appropriately interactive, pleasantly conversant, moving around without difficulty. Mucous membranes moist. Neck supple. Breathing is symmetrical and rested. Heart is in a regular rate and rhythm, is not bradycardic on exam. Radial pulses 2+. Capillary refill is less than 2 seconds. Abdomen soft, doughy, nontender. White cell count 8.6, hemoglobin 11.9, platelets of 178. BUN 56, creatinine 2.28. Discharge instructions include the followin. Followup with Dr. Hannon or Dr. Rios within [address] Rios is also suggesting followup appointment with Dr. Feliciano as an outpatient. 2. Activity as tolerated. Medications at the time of discharge include: - Norvasc 5 mg by mouth every 24 hours - continue Tylenol daily - aspirin 81 mg by mouth daily - calcitriol 0.25 mcg five times weekly - Sensipar 30 mg by mouth three times a week - fish oil one capsule by mouth daily - glipizide XL 2.5 mg by mouth daily - hydralazine 25 mg by mouth twice a day - hydroxyzine 50 mg by mouth daily at bedtime - losartan 100 mg by mouth daily - magnesium 400 mg by mouth daily - multivitamin capsule daily - simvastatin 20 mg by mouth daily at bedtime - torsemide 20 mg by mouth daily - vitamin D supplement Please note that the glipizide should be reevaluated as an outpatient. Patient does continue to wish to take the medication, but strictly speaking it may not be necessary.
== END 2017-03-31 11:09 | disposition home or self-care (01) | DRG 305 ==
LOC: M ED 15:36 → M ED INP 18:17 → M PCU 03-29 00:47
PROVIDERS: ADMIT Family Medicine; ATTEND Internal Medicine
DX: I16.0 Hypertensive urgency (principal); N18.4 Chronic kidney disease, stage 4 (severe); N25.81 Secondary hyperparathyroidism of renal origin; I50.9 Heart failure, unspecified; E11.9 Type 2 diabetes mellitus without complications; E78.5 Hyperlipidemia, unspecified; I25.10 Atherosclerotic heart disease of native coronary artery without angina pectoris; I13.0 Hypertensive heart and chronic kidney disease with heart failure and stage 1 through stage 4 chronic kidney disease, or unspecified chronic kidney disease; Z79.899 Other long term (current) drug therapy; Z79.82 Long term (current) use of aspirin; Z88.5 Allergy status to narcotic agent

== ENCOUNTER → 2017-10-21 | Outpatient (REF) | payer MEDICARE ==
[2017-10-21 15:14] LABS: ESTIMATED AVERAGE GLUCOSE 123 MG/DL (60-110); HEMOGLOBIN A1c 5.9 %
[2017-10-21 15:28] LABS: ALBUMIN/GLOBULIN RATIO 1.21 (1.00-1.93); ALKALINE PHOSPHATASE 76 U/L (45-117); ALT/SGPT 29 U/L (12-78); ANION GAP 8 MEQ/L (8-16); AST/SGOT 27 U/L (7-37); BILIRUBIN,TOTAL 0.6 MG/DL (0.2-1.0); BLOOD UREA NITROGEN 30 MG/DL (7-18); CALCIUM LEVEL 9.6 MG/DL (8.8-10.2); CARBON DIOXIDE LEVEL 29 MEQ/L (21-32); CHLORIDE LEVEL 108 MEQ/L (98-107); CHOLESTEROL LEVEL 199 MG/DL (<200); CHOLESTEROL RISK RATIO 4.326 (<5); CREATININE FOR GFR 1.66 MG/DL (0.55-1.30); GLUCOSE, FASTING 97 MG/DL (70-100); HDL CHOLESTEROL 46 MG/DL (>40); LDL CHOLESTEROL 95.6 MG/DL (<100); MAGNESIUM LEVEL 2.1 MG/DL (1.8-2.4); NON-HDL-C 153 MG/DL; SODIUM LEVEL 145 MEQ/L (136-145); TOTAL PROTEIN 7.3 GM/DL (6.4-8.2); TRIGLYCERIDES LEVEL 287 MG/DL (<150)
== END ==
LOC: M SFHCLACO 08:57
DX: I10 Essential (primary) hypertension (principal); E11.9 Type 2 diabetes mellitus without complications; E78.2 Mixed hyperlipidemia; E61.2 Magnesium deficiency
CPT/HCPCS: 83735

== ENCOUNTER → 2018-04-10 | Outpatient (REF) | payer MEDICARE ==
[2018-04-10 20:01] LABS: URINE TOTAL PROTEIN 50.4 MG/DL (0-12)
== END ==
LOC: M LAB REF 17:14
DX: R80.9 Proteinuria, unspecified (principal)
CPT/HCPCS: 84166

== ENCOUNTER → 2018-04-20 | Outpatient (REF) | payer MEDICARE ==
[2018-04-20 13:41] LABS: ALBUMIN 3.5 GM/DL (3.2-5.2); ALBUMIN/GLOBULIN RATIO 0.97 (1.00-1.93); ALKALINE PHOSPHATASE 84 U/L (45-117); ALT/SGPT 30 U/L (12-78); ANION GAP 10 MEQ/L (8-16); AST/SGOT 27 U/L (7-37); BILIRUBIN,TOTAL 0.4 MG/DL (0.2-1.0); BLOOD UREA NITROGEN 32 MG/DL (7-18); CALCIUM LEVEL 8.6 MG/DL (8.8-10.2); CARBON DIOXIDE LEVEL 28 MEQ/L (21-32); CHLORIDE LEVEL 107 MEQ/L (98-107); CHOLESTEROL LEVEL 190 MG/DL (<200); CHOLESTEROL RISK RATIO 4.418 (<5); CREATININE FOR GFR 1.64 MG/DL (0.55-1.30); GLOMERULAR FILTRATION RATE 31.5 (>32); GLUCOSE, FASTING 94 MG/DL (70-100); HDL CHOLESTEROL 43 MG/DL (>40); LDL CHOLESTEROL 79 MG/DL (<100); MAGNESIUM LEVEL 2.1 MG/DL (1.8-2.4); NON-HDL-C 147 MG/DL; SODIUM LEVEL 145 MEQ/L (136-145); TOTAL PROTEIN 7.1 GM/DL (6.4-8.2); TRIGLYCERIDES LEVEL 339 MG/DL (<150)
[2018-04-20 14:02] LABS: ESTIMATED AVERAGE GLUCOSE 126 MG/DL (60-110)
== END ==
LOC: M SFHCADAM 10:17
DX: I10 Essential (primary) hypertension (principal); E78.2 Mixed hyperlipidemia; E11.9 Type 2 diabetes mellitus without complications; E61.2 Magnesium deficiency
CPT/HCPCS: 83735

== ENCOUNTER → 2018-10-20 | Outpatient (REF) | payer MEDICARE ==
[~2018-10-20] MED LIST changes: -ACET50TA PO; +ACET650T3 PO; +AMLO5TAB6 PO; +ASPI81TA21 PO; +HYDR25TA PO; -LASI20TA PO; +LASI20TA3 PO; -LOSA100T36 PO; +LOSA100T50 PO; +MAPA500T2 PO; +TORS10TA3 PO; +TORS20TA2 PO
[2018-10-20 13:33] LABS: ALBUMIN 3.6 GM/DL (3.2-5.2); BILIRUBIN,TOTAL 0.3 MG/DL (0.2-1.0); CALCIUM LEVEL 8.8 MG/DL (8.8-10.2); CHOLESTEROL RISK RATIO 3.362 (<5); CREATININE FOR GFR 1.89 MG/DL (0.55-1.30); GLOMERULAR FILTRATION RATE 26.7 (>32); POTASSIUM SERUM 3.7 MEQ/L (3.5-5.1)
[2018-10-20 13:52] LABS: HEMOGLOBIN A1c 5.8 %
== END ==
LOC: M SFHCADAM 08:57
PROVIDERS: ATTEND Physician Assistant
DX: I10 Essential (primary) hypertension (principal); E78.2 Mixed hyperlipidemia; E11.9 Type 2 diabetes mellitus without complications; E61.2 Magnesium deficiency

== ENCOUNTER → 2018-12-16 | Outpatient (CLI) | payer MEDICARE ==
[~2018-12-16] MED LIST changes: -CINA30TA PO; +CINA30TA4 PO
--- NOTE | 2018-12-16 08:07 | REP ---
Clinical: Right-sided abdominal and flank pain. Technique: Real time dunne scale ultrasound examination using curved array transducer. Findings: Liver demonstrates increased echotexture consistent with fatty infiltration and appears subjectively mildly enlarged. 4 mm calcification in the right lobe consistent with small chronic granuloma. The pancreas is incompletely evaluated but visualized portions appear normal. The gallbladder is unremarkable and without gallstones, wall thickening, or pericholecystic fluid. No biliary ductal dilatation is appreciated and the common bile duct measures 4.4 mm diameter. Right kidney measures 11.6 x 7.7 x 5.5 cm and demonstrates cortical thinning consistent with chronic renal disease along with few cysts measuring up to 2.2 cm. No hydronephrosis. No ascites in the visualized right upper quadrant. Impression: 1. Fatty infiltration to the liver and mild possible hepatomegaly. 2. Chronic changes to the right kidney including few scattered simple cysts and cortical thinning. No hydronephrosis. Electronically Signed by Andrew Fine MD 12/16/2018 07:58 A
== END ==
LOC: M RAD 07:14
PROVIDERS: ATTEND Physician Assistant
DX: R10.11 Right upper quadrant pain (principal); K76.0 Fatty (change of) liver, not elsewhere classified; N28.1 Cyst of kidney, acquired

== ENCOUNTER 2019-01-07 10:31 | Emergency (ER) | payer MEDICARE ==
[~2019-01-07] VITALS: Ht 142.2 cm; Wt 65.0 kg
[2019-01-07 10:31] VITALS: BP 180/74
[2019-01-07] MEDS ORDERED: PANTOPRAZOLE 40MG INJ (PROTONIX) (C9113) IV ONE (11:00)
[2019-01-07] MEDS: GASTROGRAFIN SOLUTION 30ML PO SCH ×2 (11:27→12:00)
[2019-01-07 11:36] LABS: BASO # 0.1 10^3/uL (0.0-0.2); BASO % 0.6 % (0.0-1.0); EOS # 0.3 10^3/uL (0.0-0.50); HEMATOCRIT 38.3 % (36.0-47.0); HEMOGLOBIN 12.7 g/dl (12.0-15.5); LYMPH # 1.9 10^3/uL (1.5-4.5); MEAN CORPUSCULAR HEMOGLOBIN 31.8 pg (27.0-33.0); MEAN CORPUSCULAR HGB CONC 33.2 g/dl (32.0-36.5); MEAN CORPUSCULAR VOLUME 95.8 fl (80.0-96.0); MONO # 0.7 10^3/uL (0.0-0.8); MONO % 8.4 % (0.0-5.0); NEUTROPHILS # 5.7 10^3/uL (1.8-7.7); NEUTROPHILS % 65.9 % (36.0-66.0); PLATELET COUNT, AUTOMATED 236 10^3/uL (150-450); WHITE BLOOD COUNT 8.7 10^3/uL (4.0-10.0)
[2019-01-07 11:46] LABS: INR 0.88; PROTHROMBIN TIME 11.6 SECONDS (11.8-14.0)
[2019-01-07 11:47] LABS: PARTIAL THROMBOPLASTIN TIME 28.4 SECONDS (25.0-38.4)
[2019-01-07 12:12] LABS: ALBUMIN 3.3 GM/DL (3.2-5.2); ALT/SGPT 25 U/L (12-78); BILIRUBIN,DIRECT < 0.1 MG/DL (0.0-0.2); BILIRUBIN,TOTAL 0.3 MG/DL (0.2-1.0); BLOOD UREA NITROGEN 34 MG/DL (7-18); CALCIUM LEVEL 8.2 MG/DL (8.8-10.2); CARBON DIOXIDE LEVEL 27 MEQ/L (21-32); CHLORIDE LEVEL 106 MEQ/L (98-107); CK-MB VALUE MASS 1.5 NG/ML (<3.6); CPK CREATINE PHOSPHOKINASE 176 U/L (26-192); CREATININE FOR GFR 1.88 MG/DL (0.55-1.30); GLOMERULAR FILTRATION RATE 26.8 (>32); GLUCOSE, FASTING 89 MG/DL (70-100); LIPASE 468 U/L (73-393); MB/CK RELATIVE INDEX 0.85 (< OR =4); POTASSIUM SERUM 5.8 MEQ/L (3.5-5.1); SODIUM LEVEL 139 MEQ/L (136-145); TOTAL PROTEIN 7.2 GM/DL (6.4-8.2); TROPONIN I < 0.02 NG/ML (< 0.10)
--- NOTE | 2019-01-07 13:41 | REP ---
Clinical: Epigastric and upper abdominal pain. Technique: Axial images from the lung bases to the pubic symphysis using oral contrast material. Coronal and sagittal re-formations obtained. Findings: Liver includes 1 cm hypodensity in the anterior periphery of the left lobe which may represent cyst. Spleen, pancreas, gallbladder, and bilateral adrenal glands are normal for noncontrast evaluation. Kidneys demonstrate renovascular calcifications and innumerable rounded hypodensities suggesting cysts without hydronephrosis or perinephric stranding. The enteric system including stomach, small and large bowel is essentially unremarkable and without obvious acute inflammatory process. Colonic and sigmoid diverticulosis noted without acute diverticulitis. No obstruction. No free air. Pelvis demonstrates normal bladder and age-appropriate uterus/adnexa. No ascites. No free air. No adenopathy. Atherosclerotic changes to the aorta and vasculature as well as coronary arteries noted without aneurysm. Musculoskeletal structures demonstrate age-related changes without focal osseous abnormality. Impression: 1. Bilateral renal hypodensities likely representing cysts and consistent with findings on prior liver and renal ultrasounds. 2. Diverticulosis without acute diverticulitis. 3. Extensive atherosclerotic changes. 4. No further acute abdominopelvic pathology appreciated. Electronically Signed by Andrew Fine MD 01/07/2019 01:33 P
[2019-01-07] MEDS ORDERED: PROT1TAB2 PO (14:09)
--- NOTE | 2019-01-07 20:14 | ECGEPIP ---
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
== END 2019-01-07 14:18 | disposition home or self-care (01) ==
LOC: M ED 10:31
DX: K29.70 Gastritis, unspecified, without bleeding (principal); E11.9 Type 2 diabetes mellitus without complications; I11.0 Hypertensive heart disease with heart failure; I50.9 Heart failure, unspecified; I25.2 Old myocardial infarction; N28.1 Cyst of kidney, acquired; Z88.5 Allergy status to narcotic agent; Z79.899 Other long term (current) drug therapy; Z79.82 Long term (current) use of aspirin
CPT/HCPCS: 74176; 80048; 80076; 82550; 82553; 83605; 83690; 84484; 85025; 85610; 85730; 93005; 96374; 99284; C9113; Q9963

== ENCOUNTER → 2019-04-22 | Outpatient (REF) | payer MEDICARE ==
[~2019-04-22] MED LIST changes: +PROT1TAB2 PO; -SIMV20TA2 PO; +SIMV20TA22 PO
[2019-04-22 13:10] LABS: HEMOGLOBIN A1c 6.3 %
[2019-04-22 13:30] LABS: ALBUMIN 3.2 GM/DL (3.2-5.2); BILIRUBIN,TOTAL 0.4 MG/DL (0.2-1.0); CHOLESTEROL RISK RATIO 3.089 (<5); CREATININE FOR GFR 2.38 MG/DL (0.55-1.30); GLOMERULAR FILTRATION RATE 20.4 (>32); MAGNESIUM LEVEL 2.1 MG/DL (1.8-2.4); POTASSIUM SERUM 4.8 MEQ/L (3.5-5.1); TOTAL PROTEIN 7.2 GM/DL (6.4-8.2)
== END ==
LOC: M SFHCADAM 10:09
PROVIDERS: ATTEND Physician Assistant
DX: I10 Essential (primary) hypertension (principal); E78.2 Mixed hyperlipidemia; E11.9 Type 2 diabetes mellitus without complications; E61.2 Magnesium deficiency

== ENCOUNTER → 2019-04-22 | Outpatient (CLI) | payer MEDICARE ==
--- NOTE | 2019-04-22 15:20 | REP ---
Acute abdominal series three views including PA chest and supine upright abdomen: Comparison is the abdomen/pelvis CT dated 01/07/2019. PA chest: Comparison is 11/19/2016. Stable increased density in the left lower lobe compatible with scarring. The lung brewer otherwise clear. Cardiac size is normal. There are sternotomy wires, mediastinal surgical clips, unchanged. The michelle, mediastinum, skeletal structures are unchanged. There is no free subdiaphragmatic air. Impression: No acute cardiopulmonary findings. There are chronic changes as described. Abdomen, supine upright views: Comparison is the abdomen/pelvis CT dated 01/07/2019. The bowel gas pattern is normal. There is heavily calcified atheroma in the splenic artery. There is calcified atheroma in the abdominal aorta. There are calcifications projected over the left sacroiliac joint superiorly. Upon review of the comparison CT there are calcifications in this location, anterior to the left psoas muscle, not within the left ureter, likely phleboliths possibly within the left gonadal vein. There is degenerative disc disease in the lumbar spine. Impression: Normal bowel gas pattern. Calcifications as described. Electronically Signed by Kendall Solis MD 04/22/2019 03:11 P
== END ==
LOC: M ADAMS 11:26
PROVIDERS: ATTEND Physician Assistant
DX: R91.8 Other nonspecific abnormal finding of lung field (principal); K59.00 Constipation, unspecified; I10 Essential (primary) hypertension; E78.2 Mixed hyperlipidemia; E11.9 Type 2 diabetes mellitus without complications; E61.2 Magnesium deficiency

== ENCOUNTER → 2019-06-17 | Outpatient (REF) | payer MEDICARE ==
[2019-06-17 19:30] LABS: COMPLEMENT C3 173 MG/DL (90-180); COMPLEMENT C4 42 MG/DL (10-40)
== END ==
LOC: M LAB REF 18:29
PROVIDERS: ATTEND Internal Medicine Nephrology
DX: R80.9 Proteinuria, unspecified (principal)